=== PATIENT | female | born 1930 | race Caucasian/White ===

== ENCOUNTER 2016-12-23 18:15 | Inpatient (IN) ==
[2016-12-23] MEDS ORDERED: NITROGLYCERIN 2% OINT 1 INCH/GM PACK TOP STA (19:16)
[2016-12-23] MEDS ORDERED: MORPHINE 2 MG/1 ML SYRINGE IV STA (19:16)
[2016-12-23] MEDS ORDERED: ONDANSETRON 4 MG/2 ML VIAL IV STA (19:16)
[2016-12-23] MEDS ORDERED: ASPIRIN 325 MG TABLET PO STA (19:16)
[2016-12-23] MEDS ORDERED: MORPHINE 2 MG/1 ML SYRINGE ONE (19:23)
[2016-12-23] MEDS ORDERED: ASPIRIN 325 MG TABLET ONE (19:23)
[2016-12-23] MEDS ORDERED: ONDANSETRON 4 MG/2 ML VIAL ONE (19:23)
[2016-12-23] MEDS ORDERED: NITROGLYCERIN 2% OINT 1 INCH/GM PACK TOP ONE (19:23)
[2016-12-23 20:14] LABS: Basophils # 0.1 10*3/uL (0.0-0.2); Basophils % 0.5 % (0.0-0.8); Eosinophils # 0.4 10*3/uL (0.0-0.87); Eosinophils % 3.9 % (0.00-10.9); Hematocrit 34.5 VOL% (35.7-47.0); Immature Granulocytes % 0.3 %; Immature Granulocytes Absolute 0.03 #; Lymphocytes # 2.8 10*3/uL (1.4-4.0); Lymphocytes % 26.7 % (21.3-54.2); Mean Corpuscular HGB Conc 34.8 GM/DL (32-36); Mean Corpuscular Hemoglobin 33 PG (27-34); Mean Platelet Volume 13.1 FL (9.6-12.0); Monocytes # 0.8 10*3/uL (0.11-0.8); Monocytes % 7.9 % (1.7-12.7); Neutrophils # 6.3 10*3/uL (1.4-7.4); Neutrophils % 60.7 % (38.7-73.9); Platelet Count 196 T/CUMM (130-400); Red Blood Count 3.67 MC/CUMM (3.8-5.5); Red Cell Distribution Width 12.3 % (9.3-17.3); White Blood Count 10.3 T/CUMM (4-12)
[2016-12-23 20:25] LABS: Apearance,Urine CLEAR (Clear); Bilirubin,Urine Negative (Negative); Blood, Urine Small mg/dL (Negative); Glucose,Urine (UA) Negative (Negative); Ketones,Urine Negative (Negative); Nitrite,Urine Negative (Negative); Protein,Urine Negative; RBC,Urine <1 /HPF (0-4); Squamous Epithelial Cell,Urine Occasional /HPF (0-10); Urine Color Straw (Yellow); Urine Specific Gravity 1.002 (1.001-1.035); Urine Urobilinogen < 2.0 EU/DL (0.2-1.0); WBC,Urine 4 /HPF (0-6)
[2016-12-23 20:27] LABS: Albumin 3.7 G/DL (3.4-5.0); Bilirubin,Total 0.7 MG/DL (0.2-1.0); Calcium 9.1 MG/DL (8.5-10.1); Magnesium 2.8 MG/DL (1.8-2.4); Osmolality,Calculated 272.8 MOS/KG (273-304); Potassium 4.3 MMOL/L (3.5-5.1); Total Protein 7.8 G/DL (6.4-8.3)
[2016-12-23] MEDS ORDERED: cefTRIAXone 1,000 MG in SODIUM CHLORIDE 0.9% 100 ML IV STA (20:28)
[2016-12-23 20:30] LABS: PT Patient Result 10.2 SECS
[2016-12-23] MEDS ORDERED: cefTRIAXone 1,000 MG VIAL ONE (20:33)
[2016-12-23] MEDS ORDERED: SODIUM CHLORIDE 0.9% 100 ML IV ONE (20:33)
[2016-12-23] MEDS ORDERED: KETOROLAC 30 MG/1 ML VIAL IV STA (22:07)
[2016-12-23] MEDS ORDERED: KETOROLAC 30 MG/1 ML VIAL ONE (22:08)
[2016-12-23] MEDS ORDERED: GLUCAGON 1 MG VIAL IM PRN (23:25)
[2016-12-23] MEDS ORDERED: ONDANSETRON 4 MG/2 ML VIAL IV PRN (23:25)
[2016-12-23] MEDS ORDERED: LACTULOSE 20 GM/30 ML UDCUP PO PRN (23:25)
[2016-12-23] MEDS ORDERED: DEXTROSE 50% 25 GM/50 ML VIAL IV PRN (23:25)
[2016-12-24] MEDS: SODIUM CHLORIDE 0.9% 1,000 ML IV SCH (00:09)
[2016-12-24] MEDS: MORPHINE 2 MG/1 ML SYRINGE IV PRN ×2 (00:23→05:50)
[2016-12-24 02:29] LABS: Albumin 3.5 G/DL (3.4-5.0); Bilirubin,Total 0.8 MG/DL (0.2-1.0); Calcium 8.5 MG/DL (8.5-10.1); Magnesium 2.8 MG/DL (1.8-2.4); Osmolality,Calculated 278.4 MOS/KG (273-304); Potassium 4.2 MMOL/L (3.5-5.1); Risk Ratio 1.95; Total Protein 6.6 G/DL (6.4-8.3); VLDL CHOLESTEROL 17.8 MG/DL
[2016-12-24 02:40] LABS: Basophils # 0.1 10*3/uL (0.0-0.2); Basophils % 0.5 % (0.0-0.8); Eosinophils # 0.4 10*3/uL (0.0-0.87); Eosinophils % 3.8 % (0.00-10.9); Hematocrit 33.3 VOL% (35.7-47.0); Hemoglobin 11.1 GM/DL (12.0-16.0); Immature Granulocytes % 0.2 %; Immature Granulocytes Absolute 0.02 #; Lymphocytes # 2.9 10*3/uL (1.4-4.0); Lymphocytes % 31.3 % (21.3-54.2); Mean Corpuscular HGB Conc 33.3 GM/DL (32-36); Mean Corpuscular Hemoglobin 32 PG (27-34); Mean Corpuscular Volume 95.1 FL (87-102); Mean Platelet Volume 12.1 FL (9.6-12.0); Monocytes # 0.7 10*3/uL (0.11-0.8); Monocytes % 7.5 % (1.7-12.7); Neutrophils # 5.3 10*3/uL (1.4-7.4); Neutrophils % 56.7 % (38.7-73.9); Platelet Count 202 T/CUMM (130-400); Red Cell Distribution Width 12.1 % (9.3-17.3); White Blood Count 9.4 T/CUMM (4-12)
[2016-12-24] MEDS: INSULIN REGULAR 100 UNIT/ML SUBCUT SCH ×4 (08:07→21:20)
[2016-12-24] MEDS ORDERED: INFLUENZA VIRUS VACCINE 0.5 ML SYRINGE IM ONE (09:00)
[2016-12-24] MEDS ORDERED: PANTOPRAZOLE 40 MG TABLET PO SCH (09:00)
[2016-12-24] MEDS: FERROUS SULFATE 325 MG TABLET PO SCH (09:36)
[2016-12-24] MEDS: amLODIPine 2.5 MG TABLET PO SCH (09:37)
[2016-12-24] MEDS: ASPIRIN EC 81 MG TABLET PO SCH (09:37)
[2016-12-24] MEDS: FUROSEMIDE 20 MG TABLET PO SCH (09:37)
[2016-12-24] MEDS: ENOXAPARIN 100 MG/ML SYRINGE SUBCUT SCH ×2 (09:37→21:19)
[2016-12-24] MEDS: DOCUSATE SODIUM 100 MG CAPSULE PO SCH ×2 (09:37→21:19)
[2016-12-24] MEDS: POTASSIUM CHLORIDE 20 MEQ PACK PO SCH (09:38)
[2016-12-24] MEDS: ATENOLOL 25 MG TABLET PO SCH (11:52)
[2016-12-24] MEDS: ACETAMINOPHEN 325 MG TABLET PO PRN (11:52)
[2016-12-24] MEDS: metOLazone 2.5 MG TABLET PO SCH (17:18)
[2016-12-24] MEDS: PANTOPRAZOLE 40 MG TABLET PO SCH (17:39)
[2016-12-24] MEDS: ATORVASTATIN 20 MG TABLET PO SCH (21:19)
[2016-12-25] MEDS: SODIUM CHLORIDE 0.9% 1,000 ML IV SCH (02:52)
[2016-12-25 05:06] LABS: Basophils # 0.1 10*3/uL (0.0-0.2); Basophils % 0.8 % (0.0-0.8); Eosinophils # 0.4 10*3/uL (0.0-0.87); Eosinophils % 5.9 % (0.00-10.9); Hematocrit 34.4 VOL% (35.7-47.0); Hemoglobin 11.6 GM/DL (12.0-16.0); Immature Granulocytes % 0.1 %; Immature Granulocytes Absolute 0.01 #; Lymphocytes # 2.6 10*3/uL (1.4-4.0); Lymphocytes % 35.7 % (21.3-54.2); Mean Corpuscular HGB Conc 33.7 GM/DL (32-36); Mean Corpuscular Hemoglobin 32 PG (27-34); Mean Corpuscular Volume 95.3 FL (87-102); Mean Platelet Volume 11.4 FL (9.6-12.0); Monocytes # 0.6 10*3/uL (0.11-0.8); Monocytes % 7.9 % (1.7-12.7); Neutrophils # 3.6 10*3/uL (1.4-7.4); Neutrophils % 49.6 % (38.7-73.9); Platelet Count 214 T/CUMM (130-400); Red Blood Count 3.61 MC/CUMM (3.8-5.5); White Blood Count 7.3 T/CUMM (4-12)
[2016-12-25 05:24] LABS: Calcium 8.6 MG/DL (8.5-10.1); Magnesium 2.5 MG/DL (1.8-2.4); Osmolality,Calculated 280.3 MOS/KG (273-304); Potassium 4.1 MMOL/L (3.5-5.1)
[2016-12-25] MEDS ORDERED: DIAZEPAM 5 MG TABLET PO ONE (09:24)
[2016-12-25] MEDS ORDERED: POTASSIUM CHLORIDE RIDER 10 MEQ in PREMIX 1 EACH IV PRN (09:24)
[2016-12-25] MEDS ORDERED: diphenhydrAMINE CAP 25 MG CAPSULE PO ONE (09:24)
[2016-12-25] MEDS ORDERED: MAGNESIUM SULF RIDER 2 GM in PREMIX 1 EACH IV PRN (09:24)
[2016-12-25] MEDS ORDERED: SODIUM CHLORIDE 0.45% 1,000 ML IV SCH (09:30)
[2016-12-25] MEDS: FUROSEMIDE 20 MG TABLET PO SCH (09:54)
[2016-12-25] MEDS: FERROUS SULFATE 325 MG TABLET PO SCH (09:54)
[2016-12-25] MEDS: ASPIRIN EC 81 MG TABLET PO SCH (09:54)
[2016-12-25] MEDS: INSULIN REGULAR 100 UNIT/ML SUBCUT SCH ×4 (09:54→20:50)
[2016-12-25] MEDS: DOCUSATE SODIUM 100 MG CAPSULE PO SCH ×2 (09:54→20:52)
[2016-12-25] MEDS: amLODIPine 2.5 MG TABLET PO SCH (09:55)
[2016-12-25] MEDS: POTASSIUM CHLORIDE 20 MEQ PACK PO SCH (09:55)
[2016-12-25] MEDS: ATENOLOL 25 MG TABLET PO SCH (09:55)
[2016-12-25] MEDS: ENOXAPARIN 100 MG/ML SYRINGE SUBCUT SCH (09:56)
[2016-12-25] MEDS ORDERED: LIDOCAINE 1% 20 ML VIAL ONE (10:12)
[2016-12-25] MEDS ORDERED: MIDAZOLAM 2 MG/2 ML VIAL ONE (10:12)
[2016-12-25] MEDS ORDERED: HYDROmorphone 2 MG/1 ML VIAL ONE (10:12)
[2016-12-25] MEDS ORDERED: VERAPAMIL 5 MG/2 ML VIAL ONE (10:28)
[2016-12-25] MEDS ORDERED: NITROGLYCERIN DRIP 50 MG/250 ML BOTTLE IV ONE (10:29)
[2016-12-25] MEDS: metOLazone 2.5 MG TABLET PO SCH (16:30)
[2016-12-25] MEDS: PANTOPRAZOLE 40 MG TABLET PO SCH (16:30)
[2016-12-25] MEDS: ATORVASTATIN 20 MG TABLET PO SCH (20:52)
[2016-12-26 02:35] LABS: Basophils # 0.1 10*3/uL (0.0-0.2); Basophils % 0.6 % (0.0-0.8); Eosinophils # 0.4 10*3/uL (0.0-0.87); Eosinophils % 5.1 % (0.00-10.9); Hematocrit 35.4 VOL% (35.7-47.0); Immature Granulocytes % 0.4 %; Immature Granulocytes Absolute 0.03 #; Lymphocytes # 2.4 10*3/uL (1.4-4.0); Lymphocytes % 29.4 % (21.3-54.2); Mean Corpuscular HGB Conc 33.9 GM/DL (32-36); Mean Corpuscular Hemoglobin 32 PG (27-34); Mean Corpuscular Volume 94.9 FL (87-102); Mean Platelet Volume 11.7 FL (9.6-12.0); Monocytes # 0.7 10*3/uL (0.11-0.8); Monocytes % 8.3 % (1.7-12.7); Neutrophils # 4.6 10*3/uL (1.4-7.4); Neutrophils % 56.2 % (38.7-73.9); Platelet Count 210 T/CUMM (130-400); Red Blood Count 3.73 MC/CUMM (3.8-5.5); Red Cell Distribution Width 12.1 % (9.3-17.3); White Blood Count 8.2 T/CUMM (4-12)
[2016-12-26 03:13] LABS: Calcium 8.6 MG/DL (8.5-10.1); Magnesium 2.5 MG/DL (1.8-2.4); Osmolality,Calculated 279.4 MOS/KG (273-304); Potassium 4.1 MMOL/L (3.5-5.1)
[2016-12-26] MEDS: MORPHINE 2 MG/1 ML SYRINGE IV PRN (05:54)
[2016-12-26] MEDS: INSULIN REGULAR 100 UNIT/ML SUBCUT SCH (08:21)
[2016-12-26 08:26] VITALS: BP 130/60
[2016-12-26] MEDS: FUROSEMIDE 20 MG TABLET PO SCH (08:31)
[2016-12-26] MEDS: POTASSIUM CHLORIDE 20 MEQ PACK PO SCH (08:31)
[2016-12-26] MEDS: FERROUS SULFATE 325 MG TABLET PO SCH (08:31)
[2016-12-26] MEDS: DOCUSATE SODIUM 100 MG CAPSULE PO SCH (08:31)
[2016-12-26] MEDS: amLODIPine 2.5 MG TABLET PO SCH (08:31)
[2016-12-26] MEDS: ASPIRIN EC 81 MG TABLET PO SCH (08:32)
[2016-12-26] MEDS ORDERED: CYANOCOBALAMIN 1000 MCG/1 ML VIAL SUBCUT ONE (10:26)
[2016-12-26] MEDS ORDERED: INFLUENZA VIRUS VACCINE 0.5 ML SYRINGE IM ONE (10:28)
[2016-12-26] MEDS: SODIUM CHLORIDE 0.9% 1,000 ML IV SCH (10:48)
[2016-12-26] MEDS: ACETAMINOPHEN 325 MG TABLET PO PRN (11:09)
== END 2016-12-26 13:00 | disposition home or self-care (01) | DRG 287 ==
LOC: N.ED 18:15 → N.EDINP 22:43 → N.4E 23:10
PROVIDERS: ADMIT Family Medicine; ATTEND Family Medicine
PROC: CLCCHCL (ICD-10-PCS; 2016-12-25 11:45)

== ENCOUNTER 2018-04-26 03:43 | Inpatient (IN) ==
[2018-04-26] MEDS ORDERED: DILTIAZEM 50 MG/10 ML VIAL IV STA ×2 (04:08→04:43)
[2018-04-26] MEDS ORDERED: SODIUM CHLORIDE 0.9% 500 ML IV STA (04:08)
[2018-04-26 04:22] LABS: Basophils % 0.6 % (0.0-0.8); Eosinophils # 0.2 10*3/uL (0.0-0.87); Eosinophils % 2.5 % (0.00-10.9); Hematocrit 34.6 VOL% (35.7-47.0); Immature Granulocytes % 0.1 %; Immature Granulocytes Absolute 0.01 #; Lymphocytes # 0.6 10*3/uL (1.4-4.0); Lymphocytes % 8.5 % (21.3-54.2); Mean Corpuscular HGB Conc 31.8 GM/DL (32-36); Mean Corpuscular Hemoglobin 31 PG (27-34); Mean Platelet Volume 10.7 FL (9.6-12.0); Monocytes # 0.5 10*3/uL (0.11-0.8); Monocytes % 7.8 % (1.7-12.7); Neutrophils # 5.6 10*3/uL (1.4-7.4); Neutrophils % 80.5 % (38.7-73.9); Platelet Count 209 T/CUMM (130-400); Red Blood Count 3.53 MC/CUMM (3.8-5.5); Red Cell Distribution Width 12.7 % (9.3-17.3); White Blood Count 6.9 T/CUMM (4-12)
[2018-04-26 04:38] LABS: PT Patient Result 10.9 SECS
[2018-04-26 04:52] LABS: Albumin 3.8 G/DL (3.4-5.0); Bilirubin,Total 1.1 MG/DL (0.2-1.0); Calcium 8.5 MG/DL (8.5-10.1); Osmolality,Calculated 277.5 MOS/KG (273-304); Potassium 3.5 MMOL/L (3.5-5.1); Thyroid Stimulating Hormone 2.4 uIU/ml (0.358-3.74); Total Protein 7.6 G/DL (6.4-8.3)
[2018-04-26] MEDS ORDERED: ACETAMINOPHEN 325 MG TABLET PO PRN (04:57)
[2018-04-26] MEDS ORDERED: DEXTROSE 5% NACL 0.45% 1,000 ML IV SCH (05:00)
[2018-04-26] MEDS: MORPHINE 4 MG/1 ML VIAL IV PRN (05:37)
[2018-04-26] MEDS: ONDANSETRON 4 MG/2 ML VIAL IV PRN ×3 (05:37→21:53)
[2018-04-26] MEDS ORDERED: dilTIAZem Drip 125 MG/125 ML PREMIX IV SCH (08:30)
[2018-04-26 09:29] LABS: Apearance,Urine CLEAR (Clear); Bilirubin,Urine Negative (Negative); Blood, Urine Negative (Negative); Glucose,Urine (UA) Negative (Negative); Ketones,Urine Negative (Negative); Nitrite,Urine Negative (Negative); Protein,Urine Negative; RBC,Urine 3 /HPF (0-4); Urine Color Yellow (Yellow); Urine Specific Gravity 1.023 (1.001-1.035); Urine Urobilinogen < 2.0 EU/DL (0.2-1.0)
[2018-04-26 09:36] LABS: Barbiturates Screen,Urine Negative (Negative); Benzodiazepines Screen,Urine Negative (Negative); Cannabinoid Screen,Urine Negative (Negative); Opiate Screen,Urine Positive (Negative); Phencyclidine Screen,Urine Negative (Negative)
[2018-04-26 11:09] LABS: Troponin I < 0.015 NG/ML (0.00-0.045)
[2018-04-26] MEDS ORDERED: ATENOLOL 25 MG TABLET PO SCH (11:11)
[2018-04-26] MEDS ORDERED: POTASSIUM CHLORIDE 20 MEQ PACK PO SCH (11:11)
[2018-04-26 11:40] LABS: Troponin I < 0.015 NG/ML (0.00-0.045)
[2018-04-26] MEDS: DOCUSATE SODIUM 100 MG CAPSULE PO SCH ×2 (11:43→21:54)
[2018-04-26] MEDS: FUROSEMIDE 20 MG TABLET PO SCH (11:44)
[2018-04-26] MEDS: ASPIRIN EC 81 MG TABLET PO SCH (11:44)
[2018-04-26] MEDS: PANTOPRAZOLE 40 MG TABLET PO SCH (11:45)
[2018-04-26] MEDS ORDERED: ATENOLOL 25 MG TABLET PO ONE (13:16)
[2018-04-26] MEDS: APIXABAN 5 MG TABLET PO SCH ×2 (15:01→21:52)
[2018-04-26] MEDS: LEVOFLOXACIN INJ 500 MG in PREMIX 1 EACH IV SCH (15:03)
[2018-04-26 15:09] LABS: Troponin I < 0.015 NG/ML (0.00-0.045)
[2018-04-26] MEDS ORDERED: DEXTROMETHORPHAN ER 6 MG/ML 90 ML/BOTTLE PO PRN (16:34)
[2018-04-26 17:06] LABS: Troponin I < 0.015 NG/ML (0.00-0.045)
[2018-04-26] MEDS: metOLazone 2.5 MG TABLET PO SCH (18:13)
[2018-04-26 21:24] LABS: Troponin I < 0.015 NG/ML (0.00-0.045)
[2018-04-26] MEDS: DILTIAZEM CD 120 MG CAPSULE PO SCH (21:52)
[2018-04-26] MEDS: ASCORBIC ACID 500 MG TABLET PO SCH (21:52)
[2018-04-26] MEDS: SIMVASTATIN 20 MG TABLET PO SCH (21:52)
[2018-04-26] MEDS: POTASSIUM CHLORIDE 20 MEQ PACK PO SCH (21:53)
[2018-04-27 05:13] LABS: Risk Ratio 1.93; VLDL CHOLESTEROL 9.6 MG/DL
[2018-04-27] MEDS: ASPIRIN EC 81 MG TABLET PO SCH (10:32)
[2018-04-27] MEDS: ASCORBIC ACID 500 MG TABLET PO SCH ×2 (10:32→21:47)
[2018-04-27] MEDS: FUROSEMIDE 20 MG TABLET PO SCH (10:32)
[2018-04-27] MEDS: ATENOLOL 50 MG TABLET PO SCH (10:33)
[2018-04-27] MEDS: APIXABAN 5 MG TABLET PO SCH ×2 (10:33→21:47)
[2018-04-27] MEDS: DOCUSATE SODIUM 100 MG CAPSULE PO SCH ×2 (10:33→21:47)
[2018-04-27] MEDS: PANTOPRAZOLE 40 MG TABLET PO SCH (10:33)
[2018-04-27] MEDS: POTASSIUM CHLORIDE 20 MEQ PACK PO SCH ×2 (10:33→21:47)
[2018-04-27 10:43] LABS: Basophils % 0.6 % (0.0-0.8); Eosinophils % 0.4 % (0.00-10.9); Hematocrit 30.8 VOL% (35.7-47.0); Hemoglobin 9.5 GM/DL (12.0-16.0); Immature Granulocytes % 0.4 %; Immature Granulocytes Absolute 0.02 #; Lymphocytes % 19.7 % (21.3-54.2); Mean Corpuscular HGB Conc 30.8 GM/DL (32-36); Mean Corpuscular Hemoglobin 31 PG (27-34); Mean Corpuscular Volume 100.7 FL (87-102); Mean Platelet Volume 10.5 FL (9.6-12.0); Monocytes # 0.7 10*3/uL (0.11-0.8); Monocytes % 13.3 % (1.7-12.7); Neutrophils # 3.3 10*3/uL (1.4-7.4); Neutrophils % 65.6 % (38.7-73.9); Platelet Count 167 T/CUMM (130-400); Red Blood Count 3.06 MC/CUMM (3.8-5.5); Red Cell Distribution Width 12.8 % (9.3-17.3)
[2018-04-27] MEDS: OSELTAMIVIR 75 MG CAPSULE PO SCH ×2 (11:20→21:47)
[2018-04-27 11:29] LABS: Calcium 7.9 MG/DL (8.5-10.1); Osmolality,Calculated 265.5 MOS/KG (273-304); Potassium 4.4 MMOL/L (3.5-5.1)
[2018-04-27] MEDS: MORPHINE 4 MG/1 ML VIAL IV PRN ×2 (12:14→21:48)
[2018-04-27] MEDS: LEVOFLOXACIN INJ 500 MG in PREMIX 1 EACH IV SCH (14:17)
[2018-04-27] MEDS: metOLazone 2.5 MG TABLET PO SCH (18:36)
[2018-04-27] MEDS: DILTIAZEM CD 120 MG CAPSULE PO SCH (21:47)
[2018-04-27] MEDS: SIMVASTATIN 20 MG TABLET PO SCH (21:47)
[2018-04-28 04:44] LABS: Basophils % 0.7 % (0.0-0.8); Eosinophils # 0.1 10*3/uL (0.0-0.87); Eosinophils % 1.8 % (0.00-10.9); Hematocrit 30.9 VOL% (35.7-47.0); Hemoglobin 9.6 GM/DL (12.0-16.0); Immature Granulocytes % 0.2 %; Immature Granulocytes Absolute 0.01 #; Lymphocytes # 1.2 10*3/uL (1.4-4.0); Lymphocytes % 27.2 % (21.3-54.2); Mean Corpuscular HGB Conc 31.1 GM/DL (32-36); Mean Corpuscular Hemoglobin 31 PG (27-34); Mean Corpuscular Volume 99.4 FL (87-102); Mean Platelet Volume 11.1 FL (9.6-12.0); Monocytes # 0.5 10*3/uL (0.11-0.8); Monocytes % 11.7 % (1.7-12.7); Neutrophils # 2.6 10*3/uL (1.4-7.4); Neutrophils % 58.4 % (38.7-73.9); Platelet Count 181 T/CUMM (130-400); Red Blood Count 3.11 MC/CUMM (3.8-5.5); Red Cell Distribution Width 12.5 % (9.3-17.3); White Blood Count 4.5 T/CUMM (4-12)
[2018-04-28 04:58] LABS: Osmolality,Calculated 270.1 MOS/KG (273-304); Potassium 4.4 MMOL/L (3.5-5.1)
[2018-04-28 07:42] VITALS: BP 114/58
[2018-04-28] MEDS: OSELTAMIVIR 75 MG CAPSULE PO SCH (09:30)
[2018-04-28] MEDS: FUROSEMIDE 20 MG TABLET PO SCH (09:31)
[2018-04-28] MEDS: ASCORBIC ACID 500 MG TABLET PO SCH (09:32)
[2018-04-28] MEDS: DOCUSATE SODIUM 100 MG CAPSULE PO SCH (09:32)
[2018-04-28] MEDS: ASPIRIN EC 81 MG TABLET PO SCH (09:32)
[2018-04-28] MEDS: ATENOLOL 50 MG TABLET PO SCH (09:32)
[2018-04-28] MEDS: APIXABAN 5 MG TABLET PO SCH (09:33)
[2018-04-28] MEDS: POTASSIUM CHLORIDE 20 MEQ PACK PO SCH (09:33)
[2018-04-28] MEDS: PANTOPRAZOLE 40 MG TABLET PO SCH (09:33)
== END 2018-04-28 11:15 | disposition home or self-care (01) | DRG 310 ==
LOC: N.ED 03:43 → N.EDINP 04:57 → N.TELEN 10:38
PROVIDERS: ADMIT Family Medicine; ATTEND Family Medicine

== ENCOUNTER 2020-04-23 11:01 | Inpatient (IN) ==
[2020-04-23] MEDS ORDERED: SODIUM CHLORIDE 0.9% 1,000 ML IV STA (11:41)
[2020-04-23 11:57] LABS: Basophils % 0.4 % (0.0-0.8); Eosinophils # 0.1 10*3/uL (0.0-0.87); Eosinophils % 1.6 % (0.00-10.9); Hematocrit 34.6 VOL% (35.7-47.0); Hemoglobin 10.8 GM/DL (12.0-16.0); Immature Granulocytes % 0.4 %; Immature Granulocytes Absolute 0.03 #; Lymphocytes # 1.1 10*3/uL (1.4-4.0); Lymphocytes % 14.8 % (21.3-54.2); Mean Corpuscular HGB Conc 31.2 GM/DL (32-36); Mean Corpuscular Volume 102.4 FL (87-102); Mean Platelet Volume 10.4 FL (9.6-12.0); Monocytes % 7.9 % (1.7-12.7); Neutrophils % 74.9 % (38.7-73.9); Platelet Count 243 T/CUMM (130-400); Red Blood Count 3.38 MC/CUMM (3.8-5.5); Red Cell Distribution Width 12.3 % (9.3-17.3); White Blood Count 7.6 T/CUMM (4-12)
[2020-04-23 12:08] LABS: INR 1.1; PT Patient Result 11.6 SECS (9.8-11.9); Partial Thromboplastin Time 25.6 SECS (23.9-33.8)
[2020-04-23 12:16] LABS: Bacteria,Urine Occasional /HPF (Few); Bilirubin,Urine Negative (Negative); Blood, Urine Moderate mg/dL (Negative); Glucose,Urine (UA) Negative (Negative); Ketones,Urine Negative (Negative); Mucus,Urine Many /LPF (Occasional); Nitrite,Urine Negative (Negative); Protein,Urine Negative; RBC,Urine 6 /HPF (0-4); Squamous Epithelial Cell,Urine Occasional /HPF (0-10); Urine Appearance CLEAR (Clear); Urine Color Yellow (Yellow); Urine Urobilinogen < 2.0 EU/DL (0.2-1.0); WBC,Urine 8 /HPF (0-6)
[2020-04-23 12:22] LABS: Alanine Aminotransferase 21 U/L (13-56); Albumin 2.9 G/DL (3.4-5.0); Alkaline Phosphatase 61 U/L (45-117); Aspartate Amino Transferase 26 U/L (0-37); Blood Urea Nitrogen 8 MG/DL (7-18); Calcium 8.4 MG/DL (8.5-10.1); Carbon Dioxide 28 MMOL/L (21-32); Estimated Glom Filtration Rate 67 ML/MIN; Ferritin 48.7 ng/ml (8-252); Glucose 109 MG/DL (74-106); Osmolality,Calculated 281.1 MOS/KG (273-304); Potassium 3.6 MMOL/L (3.5-5.1); Sodium 142 MMOL/L (136-145); Total Protein 6.8 G/DL (6.4-8.3); Troponin I < 0.015 NG/ML (0.00-0.045)
[2020-04-23] MEDS ORDERED: cefTRIAXone 1,000 MG in SODIUM CHLORIDE 0.9% 100 ML IV STA (12:53)
[2020-04-23] MEDS ORDERED: ALBUTEROL/IPRATROPIUM 3 ML NEB RESP TX STA (12:53)
[2020-04-23] MEDS ORDERED: methylPREDNISolone SOD SUC 125 MG/2 ML VIAL IV STA ×2 (12:53→14:57)
[2020-04-23] MEDS ORDERED: DILTIAZEM INJ 100 MG in SODIUM CHLORIDE 0.9% 100 ML IV SCH (14:30)
[2020-04-23] MEDS ORDERED: ONDANSETRON 4 MG/2 ML VIAL IV PRN (14:57)
[2020-04-23] MEDS ORDERED: ACETAMINOPHEN 325 MG TABLET PO PRN (14:57)
[2020-04-23] MEDS ORDERED: MAGNESIUM SULF RIDER 4 GM in PREMIX 1 EACH IV PRN (15:07)
[2020-04-23] MEDS ORDERED: POTASSIUM CHLORIDE 20 MEQ TABLET PO PRN (15:07)
[2020-04-23] MEDS ORDERED: MAGNESIUM SULF RIDER 2 GM in PREMIX 1 EACH IV PRN (15:07)
[2020-04-23] MEDS ORDERED: PNEUMOCOCCAL VACCINE (13 VALENT) 0.5 ML SYRINGE IM ONE (15:10)
[2020-04-23] MEDS ORDERED: INFLUENZA VIRUS VACCINE 0.5 ML SYRINGE IM ONE (15:10)
[2020-04-23] MEDS ORDERED: hydrALAZINE 20 MG/1 ML VIAL IV PRN (15:13)
[2020-04-23] MEDS ORDERED: ALBUTEROL 2.5 MG/3 ML NEB RESP TX PRN (15:13)
[2020-04-23] MEDS: methylPREDNISolone SOD SUC 40 MG/1 ML VIAL IV SCH (16:07)
[2020-04-23] MEDS: FUROSEMIDE 40 MG/4 ML VIAL IV SCH (16:07)
[2020-04-23] MEDS ORDERED: DILTIAZEM 30 MG TABLET PO SCH (17:00)
[2020-04-23] MEDS: ALBUTEROL/IPRATROPIUM 3 ML NEB RESP TX SCH (19:50)
[2020-04-23] MEDS: GABAPENTIN 100 MG CAPSULE PO SCH (21:20)
[2020-04-23] MEDS: DOCUSATE SODIUM 100 MG CAPSULE PO SCH (21:20)
[2020-04-23] MEDS: APIXABAN 2.5 MG TABLET PO SCH (21:20)
[2020-04-24] MEDS: DILTIAZEM INJ 100 MG in SODIUM CHLORIDE 0.9% 100 ML IV SCH ×3 (00:51→15:06)
[2020-04-24] MEDS: ALBUTEROL/IPRATROPIUM 3 ML NEB RESP TX SCH ×4 (01:00→19:50)
[2020-04-24] MEDS: methylPREDNISolone SOD SUC 40 MG/1 ML VIAL IV SCH ×2 (03:38→15:03)
[2020-04-24 06:20] LABS: Basophils % 0.1 % (0.0-0.8); Hematocrit 33.9 VOL% (35.7-47.0); Hemoglobin 10.7 GM/DL (12.0-16.0); Immature Granulocytes % 0.3 %; Immature Granulocytes Absolute 0.03 #; Lymphocytes # 0.6 10*3/uL (1.4-4.0); Lymphocytes % 5.8 % (21.3-54.2); Mean Corpuscular HGB Conc 31.6 GM/DL (32-36); Mean Corpuscular Volume 101.2 FL (87-102); Mean Platelet Volume 11.3 FL (9.6-12.0); Monocytes % 1.4 % (1.7-12.7); Neutrophils % 92.4 % (38.7-73.9); Platelet Count 243 T/CUMM (130-400); Red Blood Count 3.35 MC/CUMM (3.8-5.5); Red Cell Distribution Width 12.2 % (9.3-17.3); White Blood Count 9.5 T/CUMM (4-12)
[2020-04-24 06:36] LABS: Calcium 8.4 MG/DL (8.5-10.1); Osmolality,Calculated 286.3 MOS/KG (273-304); Potassium 3.4 MMOL/L (3.5-5.1)
[2020-04-24 07:22] LABS: Hypochromasia 1+; Lymphocytes 5 % (20-55); Microcytosis 1+; Platelet Estimate Adequate; Segmented Neutrophils 95 % (50-85); Total Cells Counted 100
[2020-04-24] MEDS: POTASSIUM CHLORIDE 20 MEQ TABLET PO SCH (08:17)
[2020-04-24] MEDS: metOLazone 2.5 MG TABLET PO SCH (08:17)
[2020-04-24] MEDS: GABAPENTIN 100 MG CAPSULE PO SCH ×3 (08:17→21:31)
[2020-04-24] MEDS: DOCUSATE SODIUM 100 MG CAPSULE PO SCH ×2 (08:17→21:31)
[2020-04-24] MEDS: PANTOPRAZOLE 40 MG TABLET PO SCH (08:18)
[2020-04-24] MEDS: FUROSEMIDE 40 MG/4 ML VIAL IV SCH (08:18)
[2020-04-24] MEDS: APIXABAN 2.5 MG TABLET PO SCH ×2 (08:18→21:31)
[2020-04-24] MEDS: cefTRIAXone 1,000 MG in SYRINGE 1 EACH IV SCH (08:22)
[2020-04-24] MEDS ORDERED: VERAPAMIL SR 120 MG TABLET PO SCH (09:00)
[2020-04-24] MEDS ORDERED: SIMVASTATIN 20 MG TABLET PO SCH (09:00)
[2020-04-24] MEDS ORDERED: LEVOFLOXACIN INJ 750 MG in PREMIX 1 EACH IV SCH (09:00)
[2020-04-24] MEDS: INSULIN LISPRO 100 UNIT/ML SUBCUT SCH ×3 (13:38→21:32)
[2020-04-24] MEDS ORDERED: POTASSIUM CHLORIDE 20 MEQ TABLET PO ONE (13:54)
[2020-04-24 14:55] LABS: CKMB % 1.1 %; Troponin I < 0.015 NG/ML (0.00-0.045)
[2020-04-24] MEDS: METOPROLOL TARTRATE 25 MG TABLET PO SCH ×2 (15:06→21:32)
[2020-04-24 17:06] LABS: CKMB % 1.1 %; Troponin I < 0.015 NG/ML (0.00-0.045)
[2020-04-24] MEDS: DILTIAZEM 60 MG TABLET PO SCH ×3 (18:00→21:31)
[2020-04-25] MEDS: DILTIAZEM INJ 100 MG in SODIUM CHLORIDE 0.9% 100 ML IV SCH ×2 (00:54→00:55)
[2020-04-25] MEDS: methylPREDNISolone SOD SUC 40 MG/1 ML VIAL IV SCH ×2 (05:00→14:40)
[2020-04-25] MEDS: ALBUTEROL/IPRATROPIUM 3 ML NEB RESP TX SCH ×4 (07:06→19:44)
[2020-04-25] MEDS: INSULIN LISPRO 100 UNIT/ML SUBCUT SCH ×4 (08:33→22:01)
[2020-04-25] MEDS: DOCUSATE SODIUM 100 MG CAPSULE PO SCH ×2 (08:33→22:00)
[2020-04-25] MEDS: POTASSIUM CHLORIDE 20 MEQ TABLET PO SCH (08:33)
[2020-04-25] MEDS: metOLazone 2.5 MG TABLET PO SCH (08:34)
[2020-04-25] MEDS: PANTOPRAZOLE 40 MG TABLET PO SCH (08:34)
[2020-04-25] MEDS: METOPROLOL TARTRATE 25 MG TABLET PO SCH ×2 (08:35→22:01)
[2020-04-25] MEDS: APIXABAN 2.5 MG TABLET PO SCH ×2 (08:35→22:00)
[2020-04-25] MEDS: DILTIAZEM 60 MG TABLET PO SCH ×2 (08:35→14:38)
[2020-04-25] MEDS: SIMVASTATIN 10 MG TABLET PO SCH (08:35)
[2020-04-25] MEDS: GABAPENTIN 100 MG CAPSULE PO SCH ×4 (08:36→22:01)
[2020-04-25] MEDS: FUROSEMIDE 40 MG/4 ML VIAL IV SCH (08:36)
[2020-04-25] MEDS: cefTRIAXone 1,000 MG in SYRINGE 1 EACH IV SCH (08:38)
[2020-04-25 10:24] LABS: Basophils % 0.1 % (0.0-0.8); Hematocrit 32.6 VOL% (35.7-47.0); Hemoglobin 10.8 GM/DL (12.0-16.0); Immature Granulocytes % 0.6 %; Lymphocytes # 0.6 10*3/uL (1.4-4.0); Lymphocytes % 3.7 % (21.3-54.2); Mean Corpuscular HGB Conc 33.1 GM/DL (32-36); Mean Corpuscular Volume 99.4 FL (87-102); Mean Platelet Volume 10.7 FL (9.6-12.0); Monocytes % 1.6 % (1.7-12.7); Platelet Count 261 T/CUMM (130-400); Red Blood Count 3.28 MC/CUMM (3.8-5.5); Red Cell Distribution Width 12.2 % (9.3-17.3)
[2020-04-25 10:26] LABS: White Blood Count 16.1 T/CUMM (4-12)
[2020-04-25 10:44] LABS: Band Neutrophils 1 % (0-10); Calcium 8.9 MG/DL (8.5-10.1); Lymphocytes 4 % (20-55); Platelet Estimate Adequate; Potassium 3.7 MMOL/L (3.5-5.1); Segmented Neutrophils 92 % (50-85); Total Cells Counted 100
[2020-04-25 10:45] LABS: Hypochromasia 1+; Microcytosis 1+
[2020-04-25] MEDS: DILTIAZEM 90 MG TABLET PO SCH ×2 (17:13→22:01)
[2020-04-26] MEDS: ALBUTEROL/IPRATROPIUM 3 ML NEB RESP TX SCH ×4 (00:07→19:13)
[2020-04-26] MEDS: methylPREDNISolone SOD SUC 40 MG/1 ML VIAL IV SCH (04:30)
[2020-04-26 05:53] LABS: Basophils % 0.1 % (0.0-0.8); Hematocrit 33.1 VOL% (35.7-47.0); Hemoglobin 10.8 GM/DL (12.0-16.0); Immature Granulocytes % 0.7 %; Immature Granulocytes Absolute 0.11 #; Lymphocytes # 0.9 10*3/uL (1.4-4.0); Lymphocytes % 5.4 % (21.3-54.2); Mean Corpuscular HGB Conc 32.6 GM/DL (32-36); Mean Corpuscular Volume 98.2 FL (87-102); Mean Platelet Volume 11.5 FL (9.6-12.0); Monocytes % 5.1 % (1.7-12.7); Neutrophils % 88.7 % (38.7-73.9); Platelet Count 284 T/CUMM (130-400); Red Blood Count 3.37 MC/CUMM (3.8-5.5); White Blood Count 16.2 T/CUMM (4-12)
[2020-04-26 06:12] LABS: Calcium 9.3 MG/DL (8.5-10.1); Osmolality,Calculated 283.5 MOS/KG (273-304); Potassium 3.8 MMOL/L (3.5-5.1)
[2020-04-26] MEDS ORDERED: METOPROLOL TARTRATE 50 MG TABLET PO SCH ×2 (09:54→21:00)
[2020-04-26] MEDS ORDERED: METOPROLOL TARTRATE 25 MG TABLET PO ONE (09:55)
[2020-04-26] MEDS ORDERED: METOPROLOL TARTRATE 25 MG TABLET PO SCH (09:57)
[2020-04-26] MEDS: DOCUSATE SODIUM 100 MG CAPSULE PO SCH ×2 (10:04→20:32)
[2020-04-26] MEDS: INSULIN LISPRO 100 UNIT/ML SUBCUT SCH ×4 (10:04→21:06)
[2020-04-26] MEDS: APIXABAN 2.5 MG TABLET PO SCH ×2 (10:05→20:33)
[2020-04-26] MEDS: POTASSIUM CHLORIDE 20 MEQ TABLET PO SCH (10:05)
[2020-04-26] MEDS: GABAPENTIN 100 MG CAPSULE PO SCH ×3 (10:05→20:32)
[2020-04-26] MEDS: SIMVASTATIN 10 MG TABLET PO SCH (10:06)
[2020-04-26] MEDS: metOLazone 2.5 MG TABLET PO SCH (10:06)
[2020-04-26] MEDS: PANTOPRAZOLE 40 MG TABLET PO SCH (10:06)
[2020-04-26] MEDS: METOPROLOL TARTRATE 25 MG TABLET PO SCH (10:07)
[2020-04-26] MEDS: DILTIAZEM CD 180 MG CAPSULE PO SCH ×2 (10:10→20:32)
[2020-04-26] MEDS: cefTRIAXone 1,000 MG in SYRINGE 1 EACH IV SCH (10:13)
[2020-04-26] MEDS: DILTIAZEM 90 MG TABLET PO SCH (10:30)
[2020-04-26] MEDS: predniSONE 10 MG TABLET PO SCH (14:40)
[2020-04-26] MEDS: CEFDINIR 300 MG CAPSULE PO SCH (20:32)
[2020-04-26] MEDS: METOPROLOL TARTRATE 50 MG TABLET PO SCH (20:33)
[2020-04-27] MEDS: ALBUTEROL/IPRATROPIUM 3 ML NEB RESP TX SCH ×4 (02:24→19:17)
[2020-04-27 07:07] LABS: Basophils % 0.1 % (0.0-0.8); Hematocrit 36.3 VOL% (35.7-47.0); Hemoglobin 12.1 GM/DL (12.0-16.0); Immature Granulocytes % 0.6 %; Immature Granulocytes Absolute 0.09 #; Lymphocytes # 1.1 10*3/uL (1.4-4.0); Lymphocytes % 7.6 % (21.3-54.2); Mean Corpuscular HGB Conc 33.3 GM/DL (32-36); Mean Corpuscular Volume 97.8 FL (87-102); Monocytes % 6.4 % (1.7-12.7); Neutrophils % 85.3 % (38.7-73.9); Platelet Count 289 T/CUMM (130-400); Red Blood Count 3.71 MC/CUMM (3.8-5.5); Red Cell Distribution Width 11.9 % (9.3-17.3)
[2020-04-27 07:29] LABS: Calcium 9.6 MG/DL (8.5-10.1); Potassium 3.9 MMOL/L (3.5-5.1)
[2020-04-27] MEDS: INSULIN LISPRO 100 UNIT/ML SUBCUT SCH ×4 (08:28→21:46)
[2020-04-27] MEDS: DILTIAZEM CD 180 MG CAPSULE PO SCH ×2 (09:26→20:46)
[2020-04-27] MEDS: METOPROLOL TARTRATE 50 MG TABLET PO SCH (09:26)
[2020-04-27] MEDS: predniSONE 10 MG TABLET PO SCH (09:27)
[2020-04-27] MEDS: APIXABAN 2.5 MG TABLET PO SCH ×2 (09:27→20:47)
[2020-04-27] MEDS: DOCUSATE SODIUM 100 MG CAPSULE PO SCH ×2 (09:27→20:47)
[2020-04-27] MEDS: GABAPENTIN 100 MG CAPSULE PO SCH ×3 (09:27→20:47)
[2020-04-27] MEDS: CEFDINIR 300 MG CAPSULE PO SCH ×2 (09:27→20:46)
[2020-04-27] MEDS: PANTOPRAZOLE 40 MG TABLET PO SCH (09:27)
[2020-04-27] MEDS: POTASSIUM CHLORIDE 20 MEQ TABLET PO SCH (09:27)
[2020-04-27] MEDS: SIMVASTATIN 10 MG TABLET PO SCH (09:27)
[2020-04-27] MEDS: metOLazone 2.5 MG TABLET PO SCH (09:28)
[2020-04-27] MEDS ORDERED: METOPROLOL TARTRATE 25 MG TABLET PO ONE (11:00)
[2020-04-27] MEDS: SOTALOL 80 MG TABLET PO SCH ×2 (14:40→20:47)
[2020-04-27] MEDS ORDERED: METOPROLOL TARTRATE 25 MG TABLET PO SCH (21:00)
[2020-04-28] MEDS: ALBUTEROL/IPRATROPIUM 3 ML NEB RESP TX SCH ×4 (01:45→20:03)
[2020-04-28 05:35] LABS: Basophils % 0.2 % (0.0-0.8); Eosinophils # 0.1 10*3/uL (0.0-0.87); Eosinophils % 0.4 % (0.00-10.9); Hemoglobin 12.2 GM/DL (12.0-16.0); Immature Granulocytes % 0.6 %; Immature Granulocytes Absolute 0.08 #; Lymphocytes # 1.8 10*3/uL (1.4-4.0); Lymphocytes % 13.7 % (21.3-54.2); Mean Corpuscular HGB Conc 31.3 GM/DL (32-36); Mean Corpuscular Volume 102.9 FL (87-102); Mean Platelet Volume 11.2 FL (9.6-12.0); Monocytes % 8.6 % (1.7-12.7); Neutrophils % 76.5 % (38.7-73.9); Platelet Count 312 T/CUMM (130-400); Red Blood Count 3.79 MC/CUMM (3.8-5.5); Red Cell Distribution Width 11.9 % (9.3-17.3); White Blood Count 13.1 T/CUMM (4-12)
[2020-04-28 06:10] LABS: Calcium 9.2 MG/DL (8.5-10.1); Osmolality,Calculated 278.8 MOS/KG (273-304); Potassium 3.8 MMOL/L (3.5-5.1)
[2020-04-28] MEDS: INSULIN LISPRO 100 UNIT/ML SUBCUT SCH ×4 (09:16→20:46)
[2020-04-28] MEDS: metOLazone 2.5 MG TABLET PO SCH (09:17)
[2020-04-28] MEDS: POTASSIUM CHLORIDE 20 MEQ TABLET PO SCH (09:17)
[2020-04-28] MEDS: PANTOPRAZOLE 40 MG TABLET PO SCH (09:17)
[2020-04-28] MEDS: ASCORBIC ACID 500 MG TABLET PO SCH ×2 (09:17→20:46)
[2020-04-28] MEDS: GABAPENTIN 100 MG CAPSULE PO SCH ×3 (09:17→20:46)
[2020-04-28] MEDS: SOTALOL 80 MG TABLET PO SCH ×2 (09:17→20:45)
[2020-04-28] MEDS: CEFDINIR 300 MG CAPSULE PO SCH ×2 (09:17→20:45)
[2020-04-28] MEDS: DOCUSATE SODIUM 100 MG CAPSULE PO SCH ×2 (09:17→20:45)
[2020-04-28] MEDS: DILTIAZEM CD 180 MG CAPSULE PO SCH ×2 (09:18→20:47)
[2020-04-28] MEDS: SIMVASTATIN 10 MG TABLET PO SCH (09:18)
[2020-04-28] MEDS: APIXABAN 2.5 MG TABLET PO SCH ×2 (09:18→20:46)
[2020-04-28] MEDS: predniSONE 10 MG TABLET PO SCH (09:18)
[2020-04-29] MEDS: ALBUTEROL/IPRATROPIUM 3 ML NEB RESP TX SCH ×4 (01:29→19:44)
[2020-04-29 06:40] LABS: Basophils % 0.1 % (0.0-0.8); Eosinophils # 0.1 10*3/uL (0.0-0.87); Eosinophils % 0.7 % (0.00-10.9); Hematocrit 41.5 VOL% (35.7-47.0); Hemoglobin 13.2 GM/DL (12.0-16.0); Immature Granulocytes % 0.7 %; Immature Granulocytes Absolute 0.09 #; Lymphocytes # 1.5 10*3/uL (1.4-4.0); Lymphocytes % 12.2 % (21.3-54.2); Mean Corpuscular HGB Conc 31.8 GM/DL (32-36); Mean Platelet Volume 11.6 FL (9.6-12.0); Monocytes % 7.4 % (1.7-12.7); Neutrophils % 78.9 % (38.7-73.9); Platelet Count 290 T/CUMM (130-400); Red Blood Count 4.11 MC/CUMM (3.8-5.5); Red Cell Distribution Width 11.9 % (9.3-17.3); White Blood Count 12.2 T/CUMM (4-12)
[2020-04-29 06:51] LABS: Calcium 9.6 MG/DL (8.5-10.1); Potassium 3.8 MMOL/L (3.5-5.1)
[2020-04-29] MEDS: INSULIN LISPRO 100 UNIT/ML SUBCUT SCH ×4 (08:13→21:11)
[2020-04-29] MEDS: APIXABAN 2.5 MG TABLET PO SCH ×2 (08:14→21:10)
[2020-04-29] MEDS: ASCORBIC ACID 500 MG TABLET PO SCH ×2 (08:14→21:07)
[2020-04-29] MEDS: SOTALOL 80 MG TABLET PO SCH ×2 (08:14→21:07)
[2020-04-29] MEDS: DOCUSATE SODIUM 100 MG CAPSULE PO SCH ×2 (08:14→21:08)
[2020-04-29] MEDS: CEFDINIR 300 MG CAPSULE PO SCH ×2 (08:15→21:08)
[2020-04-29] MEDS: SIMVASTATIN 10 MG TABLET PO SCH (08:15)
[2020-04-29] MEDS: metOLazone 2.5 MG TABLET PO SCH (08:15)
[2020-04-29] MEDS: POTASSIUM CHLORIDE 20 MEQ TABLET PO SCH (08:15)
[2020-04-29] MEDS: predniSONE 10 MG TABLET PO SCH (08:15)
[2020-04-29] MEDS: DILTIAZEM CD 180 MG CAPSULE PO SCH ×2 (08:15→21:11)
[2020-04-29] MEDS: PANTOPRAZOLE 40 MG TABLET PO SCH (08:15)
[2020-04-29] MEDS: GABAPENTIN 100 MG CAPSULE PO SCH (08:15)
[2020-04-30] MEDS: ALBUTEROL/IPRATROPIUM 3 ML NEB RESP TX SCH ×4 (00:03→20:20)
[2020-04-30 05:43] LABS: Basophils % 0.2 % (0.0-0.8); Eosinophils # 0.1 10*3/uL (0.0-0.87); Eosinophils % 1.1 % (0.00-10.9); Hematocrit 42.5 VOL% (35.7-47.0); Hemoglobin 14.1 GM/DL (12.0-16.0); Immature Granulocytes % 0.9 %; Immature Granulocytes Absolute 0.11 #; Lymphocytes # 1.6 10*3/uL (1.4-4.0); Lymphocytes % 13.1 % (21.3-54.2); Mean Corpuscular HGB Conc 33.2 GM/DL (32-36); Mean Corpuscular Volume 96.8 FL (87-102); Mean Platelet Volume 10.7 FL (9.6-12.0); Monocytes % 6.6 % (1.7-12.7); Neutrophils % 78.1 % (38.7-73.9); Platelet Count 333 T/CUMM (130-400); Red Blood Count 4.39 MC/CUMM (3.8-5.5); Red Cell Distribution Width 11.9 % (9.3-17.3); White Blood Count 12.4 T/CUMM (4-12)
[2020-04-30 06:12] LABS: Calcium 9.6 MG/DL (8.5-10.1); Potassium 4.1 MMOL/L (3.5-5.1)
[2020-04-30] MEDS: INSULIN LISPRO 100 UNIT/ML SUBCUT SCH ×5 (07:50→21:48)
[2020-04-30] MEDS ORDERED: MIDAZOLAM 10 MG/2 ML VIAL ONE (08:38)
[2020-04-30] MEDS: PANTOPRAZOLE 40 MG TABLET PO SCH (10:13)
[2020-04-30] MEDS: APIXABAN 2.5 MG TABLET PO SCH ×2 (10:13→21:44)
[2020-04-30] MEDS: SOTALOL 80 MG TABLET PO SCH ×2 (10:13→21:44)
[2020-04-30] MEDS: DOCUSATE SODIUM 100 MG CAPSULE PO SCH ×2 (10:14→21:44)
[2020-04-30] MEDS: predniSONE 10 MG TABLET PO SCH (10:14)
[2020-04-30] MEDS: metOLazone 2.5 MG TABLET PO SCH (10:14)
[2020-04-30] MEDS: CEFDINIR 300 MG CAPSULE PO SCH ×2 (10:14→21:44)
[2020-04-30] MEDS: SIMVASTATIN 10 MG TABLET PO SCH (10:15)
[2020-04-30] MEDS: POTASSIUM CHLORIDE 20 MEQ TABLET PO SCH (10:15)
[2020-04-30] MEDS: ASCORBIC ACID 500 MG TABLET PO SCH ×2 (10:15→21:44)
[2020-04-30] MEDS: DILTIAZEM CD 180 MG CAPSULE PO SCH ×2 (10:41→21:47)
[2020-05-01] MEDS: ALBUTEROL/IPRATROPIUM 3 ML NEB RESP TX SCH ×4 (00:12→18:50)
[2020-05-01 05:43] LABS: Basophils % 0.2 % (0.0-0.8); Eosinophils # 0.2 10*3/uL (0.0-0.87); Eosinophils % 1.4 % (0.00-10.9); Hematocrit 39.1 VOL% (35.7-47.0); Hemoglobin 13.1 GM/DL (12.0-16.0); Immature Granulocytes % 0.9 %; Immature Granulocytes Absolute 0.11 #; Lymphocytes # 2.3 10*3/uL (1.4-4.0); Lymphocytes % 18.7 % (21.3-54.2); Mean Corpuscular HGB Conc 33.5 GM/DL (32-36); Mean Corpuscular Volume 96.1 FL (87-102); Mean Platelet Volume 10.5 FL (9.6-12.0); Monocytes % 7.9 % (1.7-12.7); Neutrophils % 70.9 % (38.7-73.9); Platelet Count 305 T/CUMM (130-400); Red Blood Count 4.07 MC/CUMM (3.8-5.5); Red Cell Distribution Width 11.7 % (9.3-17.3); White Blood Count 12.3 T/CUMM (4-12)
[2020-05-01 06:07] LABS: Calcium 9.4 MG/DL (8.5-10.1); Osmolality,Calculated 272.1 MOS/KG (273-304); Potassium 4.2 MMOL/L (3.5-5.1)
[2020-05-01] MEDS: DOCUSATE SODIUM 100 MG CAPSULE PO SCH ×2 (08:12→20:16)
[2020-05-01] MEDS: ASCORBIC ACID 500 MG TABLET PO SCH ×2 (08:12→20:16)
[2020-05-01] MEDS: PANTOPRAZOLE 40 MG TABLET PO SCH (08:12)
[2020-05-01] MEDS: metOLazone 2.5 MG TABLET PO SCH (08:12)
[2020-05-01] MEDS: predniSONE 10 MG TABLET PO SCH (08:12)
[2020-05-01] MEDS: SIMVASTATIN 10 MG TABLET PO SCH (08:12)
[2020-05-01] MEDS: SOTALOL 80 MG TABLET PO SCH ×2 (08:12→20:16)
[2020-05-01] MEDS: APIXABAN 2.5 MG TABLET PO SCH ×2 (08:13→20:16)
[2020-05-01] MEDS: POTASSIUM CHLORIDE 20 MEQ TABLET PO SCH (08:13)
[2020-05-01] MEDS: CEFDINIR 300 MG CAPSULE PO SCH ×2 (08:13→20:16)
[2020-05-01] MEDS: DILTIAZEM CD 180 MG CAPSULE PO SCH (08:30)
[2020-05-01] MEDS: INSULIN LISPRO 100 UNIT/ML SUBCUT SCH ×4 (08:31→20:16)
[2020-05-02] MEDS: ALBUTEROL/IPRATROPIUM 3 ML NEB RESP TX SCH ×2 (00:25→06:47)
[2020-05-02 05:12] LABS: Basophils % 0.1 % (0.0-0.8); Eosinophils # 0.2 10*3/uL (0.0-0.87); Eosinophils % 1.4 % (0.00-10.9); Hematocrit 40.2 VOL% (35.7-47.0); Hemoglobin 13.2 GM/DL (12.0-16.0); Immature Granulocytes % 0.7 %; Immature Granulocytes Absolute 0.08 #; Lymphocytes # 2.4 10*3/uL (1.4-4.0); Lymphocytes % 21.2 % (21.3-54.2); Mean Corpuscular HGB Conc 32.8 GM/DL (32-36); Mean Corpuscular Volume 97.8 FL (87-102); Mean Platelet Volume 10.2 FL (9.6-12.0); Neutrophils % 67.6 % (38.7-73.9); Platelet Count 301 T/CUMM (130-400); Red Blood Count 4.11 MC/CUMM (3.8-5.5); Red Cell Distribution Width 11.8 % (9.3-17.3); White Blood Count 11.1 T/CUMM (4-12)
[2020-05-02 05:35] LABS: Calcium 9.4 MG/DL (8.5-10.1); Osmolality,Calculated 269.4 MOS/KG (273-304)
[2020-05-02 08:22] VITALS: BP 121/68
[2020-05-02] MEDS: DOCUSATE SODIUM 100 MG CAPSULE PO SCH (09:35)
[2020-05-02] MEDS: INSULIN LISPRO 100 UNIT/ML SUBCUT SCH (09:35)
[2020-05-02] MEDS: CEFDINIR 300 MG CAPSULE PO SCH (09:36)
[2020-05-02] MEDS: ASCORBIC ACID 500 MG TABLET PO SCH (09:36)
[2020-05-02] MEDS: metOLazone 2.5 MG TABLET PO SCH (09:37)
[2020-05-02] MEDS: POTASSIUM CHLORIDE 20 MEQ TABLET PO SCH (09:37)
[2020-05-02] MEDS: APIXABAN 2.5 MG TABLET PO SCH (09:37)
[2020-05-02] MEDS: predniSONE 10 MG TABLET PO SCH (09:37)
[2020-05-02] MEDS: PANTOPRAZOLE 40 MG TABLET PO SCH (09:37)
[2020-05-02] MEDS: SIMVASTATIN 10 MG TABLET PO SCH (09:37)
[2020-05-02] MEDS: SOTALOL 80 MG TABLET PO SCH (09:37)
== END 2020-05-02 11:56 | disposition home or self-care (01) | DRG 309 ==
LOC: N.ED 11:01 → N.TELEN 14:07
PROVIDERS: ADMIT Family Medicine; ATTEND Family Medicine